=== PATIENT | female | born 1985 | race Caucasian/White ===

== ENCOUNTER 2018-04-23 09:46 | Emergency (ER) | payer BC ==
[~2018-04-23] VITALS: Ht 167.6 cm; Wt 74.8 kg
[2018-04-23] MEDS ORDERED: IV NORMAL SALINE 1,000ML 1,000 ML IV SCH (09:58)
[2018-04-23] MEDS ORDERED: MORPHINE SULFATE 4 MG/ML DISP.SYRIN. IV ONE (10:00)
[2018-04-23] MEDS ORDERED: ONDANSETRON PF 4 MG/2 ML VIAL. IV ONE (10:00)
[2018-04-23] MEDS ORDERED: 0.9 % SODIUM CHLORIDE 10 ML DISP.SYRIN. IV PRN (10:00)
[2018-04-23 10:13] LABS: BASO # 0.1 x10^3/uL (0.0-0.2); BASO % 1 % (0-3); EOS # 0.2 x10^3/uL (0.0-0.7); EOS % 1 % (0-3); HEMOGLOBIN 14.5 g/dL (12.0-15.5); LYMPH # 3.4 x10^3/uL (1.0-4.8); LYMPH % 22 % (24-48); MEAN CORPUSCULAR HEMOGLOBIN 33 pg (25-35); MEAN CORPUSCULAR HGB CONC 35 g/dL (31-37); MEAN CORPUSCULAR VOLUME 96 fL (79-100); MONO % 7 % (0-9); NEUT # 10.9 x10^3uL (1.8-7.7); NEUT % 70 % (31-73); PLATELET COUNT 300 x10^3/uL (140-400); RED BLOOD COUNT 4.38 x10^6/uL (3.50-5.40); RED CELL DISTRIBUTION WIDTH 13.9 % (11.5-14.5); WHITE BLOOD COUNT 15.6 x10^3/uL (4.0-11.0)
[2018-04-23 10:26] LABS: ALBUMIN 3.9 g/dL (3.4-5.0); ALBUMIN/GLOBULIN RATIO 1.1 (1.0-1.7); CALCIUM 8.9 mg/dL (8.5-10.1); CREATININE 0.7 mg/dL (0.6-1.0); GFR 98.3; POTASSIUM 4.1 mmol/L (3.5-5.1); TOTAL BILIRUBIN 0.6 mg/dL (0.2-1.0); TOTAL PROTEIN 7.3 g/dL (6.4-8.2)
--- NOTE | 2018-04-23 10:28 | PHYS DOC ---
Past History Past Medical History: No Pertinent History Smoking: Non-smoker Alcohol Use: Occasionally Drug Use: None Adult General Chief Complaint Chief Complaint: ABDOMINAL PAIN HPI HPI 32-year-old female patient presented to ER with complaining of abdominal pain. Patient states she had multiple abdominal pain since this morning that gradually became worse and had 7 episodes of vomiting and constant dry heaves. Patient rated his pain 10 over 10 and as a sharp pain with radiation to her back and upper abdomen without constipation, diarrhea, urinary symptom. Patient states she has history of ectopic and negative. Plan to removal with the same pain. Patient had LMP of 3 weeks ago. Review of Systems Review of Systems Constitutional: Denies fever or chills [] Eyes: Denies change in visual acuity, redness, or eye pain [] HENT: Denies nasal congestion or sore throat [] Respiratory: Denies cough or shortness of breath [] Cardiovascular: No additional information not addressed in HPI [] GI: Reports abdominal pain, nausea, vomiting, denies bloody stools or diarrhea [] : Denies dysuria or hematuria [] Musculoskeletal: Denies back pain or joint pain [] Integument: Denies rash or skin lesions [] Neurologic: Denies headache, focal weakness or sensory changes [] Endocrine: Denies polyuria or polydipsia [] All other systems were reviewed and found to be within normal limits, except as documented in this note. Current Medications Current Medications Current Medications Medications (Trade) Dose Ordered Sig/[facility] Start Time Stop Time Status Last Admin Dose Admin Morphine Sulfate (Morphine 4mg Syringe) 4 mg 1X ONCE 04/23/18 10:00 04/23/18 10:21 DC 04/23/18 10:00 4 MG Ondansetron HCl (Zofran) 4 mg 1X ONCE 04/23/18 10:00 04/23/18 10:21 DC 04/23/18 10:00 4 MG Sodium Chloride (Normal Saline Flush) 10 ml QSHIFT PRN 04/23/18 10:00 Allergies Allergies Allergies Coded Allergies Type Severity Reaction Last Updated Verified No Known Drug Allergies 04/23/18 No Physical Exam Physical Exam Constitutional: Well developed, well nourished, moderate distress, non-toxic appearance. [] HENT: Normocephalic, atraumatic, oropharynx dry, no oral exudates, nose normal. [] Eyes: PERRLA, EOMI, conjunctiva normal, no discharge. [] Neck: Normal range of motion, no tenderness, supple, no stridor. [] Cardiovascular: Bradycardic, no murmur [] Lungs & Thorax: Bilateral breath sounds clear to auscultation [] Abdomen: Bowel sounds normal, soft, lower abdominal guarding and tenderness, no masses, no pulsatile masses. [] Skin: Warm, dry, no erythema, no rash. [] Back: No tenderness, no CVA tenderness. [] Extremities: No tenderness, no cyanosis, no clubbing, ROM intact, no edema. [] Neurologic: Alert and oriented X 3, normal motor function, normal sensory function, no focal deficits noted. [] Psychologic: Affect anxious, judgement normal, mood normal. [] Current Patient Data Vital Signs Vital Signs Date Time Temp Pulse Resp B/P (MAP) Pulse Ox O2 Delivery O2 Flow Rate FiO2 04/23/18 10:14 98.3 94 18 98 Room Air Lab Results Laboratory Tests Test 04/23/18 09:59 White Blood Count 15.6 x10^3/uL (4.0-11.0) H Red Blood Count 4.38 x10^6/uL (3.50-5.40) Hemoglobin 14.5 g/dL (12.0-15.5) Hematocrit 42.0 % (36.0-47.0) Mean Corpuscular Volume 96 fL (79-100) Mean Corpuscular Hemoglobin 33 pg (25-35) Mean Corpuscular Hemoglobin Concent 35 g/dL (31-37) Red Cell Distribution Width 13.9 % (11.5-14.5) Platelet Count 300 x10^3/uL (140-400) Neutrophils (%) (Auto) 70 % (31-73) Lymphocytes (%) (Auto) 22 % (24-48) L Monocytes (%) (Auto) 7 % (0-9) Eosinophils (%) (Auto) 1 % (0-3) Basophils (%) (Auto) 1 % (0-3) Neutrophils # (Auto) 10.9 x10^3uL (1.8-7.7) H Lymphocytes # (Auto) 3.4 x10^3/uL (1.0-4.8) Monocytes # (Auto) 1.0 x10^3/uL (0.0-1.1) Eosinophils # (Auto) 0.2 x10^3/uL (0.0-0.7) Basophils # (Auto) 0.1 x10^3/uL (0.0-0.2) Platelet Estimate Pending Sodium Level 138 mmol/L (136-145) Potassium Level 4.1 mmol/L (3.5-5.1) Chloride Level 106 mmol/L (98-107) Carbon Dioxide Level 22 mmol/L (21-32) Anion Gap 10 (6-14) Blood Urea Nitrogen 17 mg/dL (7-20) Creatinine 0.7 mg/dL (0.6-1.0) Estimated GFR (Cockcroft-Gault) 98.3 BUN/Creatinine Ratio 24 (6-20) H Glucose Level 96 mg/dL (70-99) Calcium Level 8.9 mg/dL (8.5-10.1) Total Bilirubin 0.6 mg/dL (0.2-1.0) Aspartate Amino Transferase (AST) 18 U/L (15-37) Alanine Aminotransferase (ALT) 28 U/L (14-59) Alkaline Phosphatase 86 U/L (46-116) Total Protein 7.3 g/dL (6.4-8.2) Albumin 3.9 g/dL (3.4-5.0) Albumin/Globulin Ratio 1.1 (1.0-1.7) Lipase 84 U/L (73-393) EKG EKG [] Radiology/Procedures Radiology/Procedures [][place] [address] IMAGING REPORT Signed PATIENT: TOBIAS MEEHAN ACCOUNT: [id number] : 1985 LOCATION: ER AGE: 32 SEX: F EXAM STATUS: REG ER ORD. PHYSICIAN: VIVIAN NOONAN MD REASON: abdominal pain PROCEDURE: CT ABDOMEN PELVIS WO CONTRAST CT abdomen and pelvis without contrast 04/23/2018 CLINICAL INDICATION: Abdominal pain, mid section. COMPARISON: None. TECHNIQUE: Multiple CT images of the abdomen and pelvis were obtained without contrast. *One or more of the following individualized dose reduction techniques were utilized for this examination: 1. Automated exposure control. 2. Adjustment of the mA and/or kV according to patient size. 3. Use of iterative reconstruction technique. FINDINGS: Heart size is normal. Visualized lung bases are clear. Evaluation of the solid abdominal pelvic viscera, lymphadenopathy and vasculature is limited in the absence of intravenous contrast. Unenhanced contours of the liver, spleen, adrenal glands, pancreas and kidneys are grossly unremarkable. No hydronephrosis or nephrolithiasis. Small and large bowel loops are normal in caliber without obstruction. Mild dilatation of the appendix measuring 0.9 cm with intraluminal appendicolith and mild periappendiceal stranding. No pneumoperitoneum or drainable fluid collection. There is asymmetric density within the right omental fat without fluid or abnormal configuration of the associated vasculature no bowel obstruction. Trace dependent pelvic free fluid, likely reactive. Uterus and adnexa grossly unremarkable, though not well-visualized by CT. Mildly distended unopacified urinary bladder unremarkable. There are no destructive osseous lesions. IMPRESSION: 1. Acute uncomplicated appendicitis. 2. Asymmetric hazy attenuation the right omental fat, may be reactive to the appendiceal inflammation, as there is no evidence of omental fat torsion. These findings were discussed with Dr. Noonan by telephone at 11:10 AM 04/23/[address] Kam Webb. Electronically signed by: Kam Webb MD (04/23/2018 11:14 AM) [facility] [place] DICTATED AND SIGNED BY: KAM WEBB MD DATE: 04/23/18 1103 CC: VIVIAN NOONAN MD; PCP,NO ~ Course & Med Decision Making Course & Med Decision Making Pertinent Labs and Imaging studies reviewed. (See chart for details) Evaluation of patient in ER showed 32-year-old female patient with complaining of severe abdominal pain and nausea and vomiting. Patient was very anxious at arrival to ER with lower abdominal tenderness and guarding. Patient treated with IV fluid, Zofran, morphine and Toradol and felt better. Labs showed leukocytosis. test was negative. CT showed acute appendicitis. Dr. Pulliam call surgeon at [facility] informed at 1116 and recommended to admit patient to hospitalist and transfer patient to [facility]. Dr. Ayala accepted transfer to [facility]. Dragon Disclaimer Dragon Disclaimer This electronic medical record was generated, in whole or in part, using a voice recognition dictation system. Departure Departure: Impression: Primary Impression: Acute appendicitis Additional Impressions: Nausea and vomiting Bradycardia Disposition: XFER SHT-TRM HOSP ([facility] at 1117) Condition: IMPROVED Referrals: PCP,NO (PCP) Problem Qualifiers VIVIAN NOONAN MD Apr 23, 2018 10:28
[2018-04-23 10:37] LABS: PREG TEST PT QUAL NEGATIVE (NEG)
[2018-04-23] MEDS ORDERED: KETOROLAC 30 MG/ML VIAL. IV ONE (10:45)
[2018-04-23 11:11] LABS: % BANDS 2 % (0-9); % BASOS 0 % (0-3); % EOS 2 % (0-5); % LYMPHS 25 % (24-48); % MONOS 9 % (0-10); % SEGS 62 % (35-66); PLT ESTIMATE ADEQUATE (ADEQUATE); TOXIC GRANULATION PRESENT
[2018-04-23 11:16] VITALS: BP 123/86
--- NOTE | 2018-04-23 11:17 | RAD ---
CT abdomen and pelvis without contrast 04/23/2018 CLINICAL INDICATION: Abdominal pain, mid section. COMPARISON: None. TECHNIQUE: Multiple CT images of the abdomen and pelvis were obtained without contrast. *One or more of the following individualized dose reduction techniques were utilized for this examination: 1. Automated exposure control. 2. Adjustment of the mA and/or kV according to patient size. 3. Use of iterative reconstruction technique. FINDINGS: Heart size is normal. Visualized lung bases are clear. Evaluation of the solid abdominal pelvic viscera, lymphadenopathy and vasculature is limited in the absence of intravenous contrast. Unenhanced contours of the liver, spleen, adrenal glands, pancreas and kidneys are grossly unremarkable. No hydronephrosis or nephrolithiasis. Small and large bowel loops are normal in caliber without obstruction. Mild dilatation of the appendix measuring 0.9 cm with intraluminal appendicolith and mild periappendiceal stranding. No pneumoperitoneum or drainable fluid collection. There is asymmetric density within the right omental fat without fluid or abnormal configuration of the associated vasculature no bowel obstruction. Trace dependent pelvic free fluid, likely reactive. Uterus and adnexa grossly unremarkable, though not well-visualized by CT. Mildly distended unopacified urinary bladder unremarkable. There are no destructive osseous lesions. IMPRESSION: 1. Acute uncomplicated appendicitis. 2. Asymmetric hazy attenuation the right omental fat, may be reactive to the appendiceal inflammation, as there is no evidence of omental fat torsion. These findings were discussed with Dr. Madrigal by telephone at 11:10 AM 04/23/[address] Isidro Webb. Electronically signed by: Isidro Webb MD (04/23/2018 11:14 AM) [facility]
[2018-04-23] MEDS ORDERED: PIPERACILLIN/TAZOBACTAM 3.375 GM VIAL IV ONE (11:22)
[2018-04-23] MEDS ORDERED: IV NORMAL SALINE 50ML 50 ML ONE (11:23)
[2018-04-23 11:26] LABS: BILIRUBIN,URINE NEG (NEG); CLARITY,URINE HAZY; COLOR,URINE YELLOW; GLUCOSE,URINE NEG (NEG)
[2018-04-23 11:27] LABS: AMORPHOUS SEDIMENT,UR PRESENT /HPF; BACTERIA,URINE MOD /HPF (0-FEW); NITRITE,URINE NEG (NEG); RBC,URINE 0 /HPF (0-2); SQUAMOUS EPITHELIAL CELL,UR MOD /LPF; UROBILINOGEN,URINE 0.2 mg/dL (0.2 mg/dL); WBC,URINE RARE /HPF (0-4)
[2018-04-23] MEDS ORDERED: HYDROmorphone PF 1 MG/ML DISP.SYRIN IV ONE (11:30)
[2018-04-23] MEDS ORDERED: PIPERACILLIN/TAZOBACTAM 3.375 GM in IV NORMAL SALINE 50ML 50 ML IV ONE (11:30)
== END 2018-04-23 11:38 | disposition short-term general hospital (02) ==
LOC: ER 09:46
DX: K35.80 Unspecified acute appendicitis (principal); R00.1 Bradycardia, unspecified
CPT/HCPCS: 36415; 74176; 80053; 81001; 83690; 84703; 85007; 85025; 87086; 96361; 96374; 96375; 99285; J1170; J1885; J2270; J2405; J2543; J7030

== ENCOUNTER → 2018-05-01 | Outpatient (CLI) | payer BC ==
[2018-04-23 11:16] VITALS: BP 123/86
[2018-05-01 16:48] LABS: BASO # 0.1 x10^3/uL (0.0-0.2); BASO % 1 % (0-3); EOS # 0.5 x10^3/uL (0.0-0.7); EOS % 4 % (0-3); HEMATOCRIT 40.3 % (36.0-47.0); HEMOGLOBIN 13.7 g/dL (12.0-15.5); LYMPH # 3.9 x10^3/uL (1.0-4.8); LYMPH % 29 % (24-48); MEAN CORPUSCULAR HEMOGLOBIN 33 pg (25-35); MEAN CORPUSCULAR HGB CONC 34 g/dL (31-37); MEAN CORPUSCULAR VOLUME 97 fL (79-100); MONO # 0.8 x10^3/uL (0.0-1.1); MONO % 6 % (0-9); NEUT % 60 % (31-73); PLATELET COUNT 341 x10^3/uL (140-400); RED BLOOD COUNT 4.16 x10^6/uL (3.50-5.40); RED CELL DISTRIBUTION WIDTH 13.9 % (11.5-14.5); WHITE BLOOD COUNT 13.4 x10^3/uL (4.0-11.0)
== END | disposition home or self-care (01) ==
LOC: RAD 16:29
PROVIDERS: ATTEND Physician Assistant
DX: D72.829 Elevated white blood cell count, unspecified (principal)
CPT/HCPCS: 36415; 85025

== ENCOUNTER 2019-03-20 19:32 | Emergency (ER) | payer BC ==
[~2019-03-20] VITALS: Ht 154.9 cm; Wt 70.3 kg
[2019-03-20] MEDS ORDERED: IV NORMAL SALINE 1,000ML 1,000 ML IV SCH (19:59)
--- NOTE | 2019-03-20 20:09 | PHYS DOC ---
Past History Past Medical History: No Pertinent History Smoking: Non-smoker Alcohol Use: Occasionally Drug Use: None Adult General Chief Complaint Chief Complaint: ABDOMINAL PAIN HPI HPI Patient is a 33-year-old female who presents with complaint of left-sided flank and lower abdominal pain that started yesterday. Patient states that she has had some nausea and vomiting associated with the pain. She denies any urinary discomfort. She states that initially the pain is located in her left back and then has progressively come around the flank and radiates into her groin. She rates pain at a 7 out of 10. Patient states that nothing seems to improve the pain. She does indicate the pain is worsened with certain movements and with palpation over the painful area.[] Review of Systems Review of Systems Constitutional: Denies fever or chills [] Respiratory: Denies cough or shortness of breath [] Cardiovascular: No additional information not addressed in HPI [] GI: Complains of left-sided abdominal/flank pain with nausea and vomiting. Denies diarrhea [] : Denies dysuria or hematuria [] Musculoskeletal: Complains of left-sided back pain [] All other systems were reviewed and found to be within normal limits, except as documented in this note. Current Medications Current Medications Current Medications Medications (Trade) Dose Ordered Sig/[facility] Start Time Stop Time Status Last Admin Dose Admin Ketorolac Tromethamine (Toradol 30mg Vial) 30 mg 1X ONCE 03/20/19 20:00 03/20/19 20:01 UNV Ondansetron HCl (Zofran) 4 mg 1X ONCE 03/20/19 20:15 03/20/19 20:16 Sodium Chloride 1,000 ml @ 1,000 mls/hr Q1H 03/20/19 19:59 03/20/19 20:58 Allergies Allergies Allergies Coded Allergies Type Severity Reaction Last Updated Verified No Known Drug Allergies 04/23/18 No Physical Exam Physical Exam Constitutional: Well developed, well nourished, no acute distress, non-toxic appearance. [] HENT: Normocephalic, atraumatic, bilateral external ears normal, oropharynx moist, no oral exudates, nose normal. [] Eyes: PERRLA, EOMI, conjunctiva normal, no discharge. [] Neck: Normal range of motion, no tenderness, supple, no stridor. [] Cardiovascular: Regular rate and rhythm[] Lungs & Thorax: Bilateral breath sounds clear to auscultation [] Abdomen: Bowel sounds normal, soft, with left lower abdominal tenderness. [] Skin: Warm, dry, no erythema, no rash. [] Back: Mild left-sided CVA tenderness. [] Extremities: No tenderness, no cyanosis, no clubbing, ROM intact, no edema. [] Neurologic: Alert and oriented X 3, no focal deficits noted. [] Current Patient Data Lab Results Laboratory Tests Test 03/20/19 20:00 POC Urine HCG, Qualitative hcg negative (Negative) EKG EKG [] Radiology/Procedures Radiology/Procedures [] Impressions: PROCEDURE: CT ABD PELV W/ IV CONTRST ONLY CT Abdomen and Pelvis with contrast 03/20/2019 Clinical Indication: Left lower quadrant abdominal pain Comparison: CT abdomen and pelvis 04/23/2018 Technique: Multiple CT images of the abdomen and pelvis were obtained with contrast following intravenous administration of iodinated contrast material *One or more of the following individualized dose reduction techniques were utilized for this examination: 1. Automated exposure control. 2. Adjustment of the mA and/or kV according to patient size. 3. Use of iterative reconstruction technique. Findings: Heart size is normal. Visualized lung bases are clear. Liver, gallbladder, spleen, adrenal glands, pancreas and right kidney are unremarkable.d there is a 0.7 cm hypodensity in the inferior pole the left kidney which is too small to characterize. Abdominal aorta normal in caliber. Small and large bowel loops are normal in caliber without obstruction. Prior appendectomy. No abdominal free fluid or pneumoperitoneum. There is a linear hypodensity extending through the lower anterior uterine segment consistent with section scar. Right adnexa unremarkable. There is a left adnexal hypodensity measuring up to 2.2 cm series 2/image 56. Trace pelvic free fluid, likely physiologic. Mildly distended unopacified urinary bladder is unremarkable. No iliac or inguinal lymphadenopathy. There is mild chronic anterior wedging from T10 through to T12. IMPRESSION: 1. Left adnexal hypodensity measuring 2.2 cm, likely physiologic cyst. If there is focal pain, pelvic ultrasound with transvaginal is recommended for further evaluation. 2. Otherwise, no CT evidence of acute abdominal or pelvic process. 3. Solitary too small to characterize left renal hypodensity. Electronically signed by: Isidro Webb MD (03/20/2019 10:02 PM) [facility] [id number] PROCEDURE: TRANSVAGINAL Pelvic ultrasound dated 03/20/2019. No comparison available. Clinical data indication: Left lower quadrant pain. FINDINGS: Transvaginal imaging performed. Uterus measures 9.4 x 4.5 x 4.5 cm. No focal uterine mass. The medial complex is normal thickness for age measuring 10 mm. Right ovary measures 2.5 x 2.1 x 1.9 cm. Left ovary measures 2.8 x 2.8 x 3.0 cm. Normal color Doppler flow to both ovaries. There is a prominent left ovarian cyst that measures up to 2.5 cm in size. Small amount of free fluid. IMPRESSION: 1. No acute sonographic abnormality. 2. Small left ovarian cyst. 3. Trace amount of free pelvic fluid, nonspecific. Electronically signed by: Guillermo Jasso MD (03/20/2019 11:08 PM) [facility] DICTATED AND SIGNED BY: GUILLERMO JASSO MD DATE: 03/20/19 0064 Course & Med Decision Making Course & Med Decision Making Pertinent Labs and Imaging studies reviewed. (See chart for details) [] Dragon Disclaimer Dragon Disclaimer This electronic medical record was generated, in whole or in part, using a voice recognition dictation system. Departure Departure: Impression: Primary Impression: Ovarian cyst Disposition: 01 HOME, SELF-CARE Condition: STABLE Referrals: LEE ARROYO (PCP) Patient Instructions: Ovarian Cyst Scripts Ondansetron Hcl (ZOFRAN) 4 Mg Tablet 4 MG PO Q6HRS PRN for NAUSEA, #12 TAB Prov: DORENE SANTANA Jr. DO 03/20/19 Hydrocodone Bit/Acetaminophen (NORCO 5-325 TABLET) 1 Each Tablet 1 TAB PO PRN Q6HRS PRN for PAIN, #12 TAB 0 Refills Prov: DORENE SANTANA Jr. DO 03/20/19 Problem Qualifiers Primary Impression: Ovarian cyst Laterality: left Qualified Codes: N83.202 - Unspecified ovarian cyst, left side DORENE SANTANA Jr. DO March 20, 2019 20:09
[2019-03-20] MEDS ORDERED: KETOROLAC 30 MG/ML VIAL. IV ONE (20:15)
[2019-03-20] MEDS ORDERED: ONDANSETRON PF 4 MG/2 ML VIAL. IV ONE ×2 (20:15→23:00)
[2019-03-20 20:20] LABS: BASO # 0.2 x10^3/uL (0.0-0.2); BASO % 1 % (0-3); EOS # 0.2 x10^3/uL (0.0-0.7); EOS % 1 % (0-3); HEMATOCRIT 43.5 % (36.0-47.0); HEMOGLOBIN 14.8 g/dL (12.0-15.5); LYMPH # 3.4 x10^3/uL (1.0-4.8); LYMPH % 19 % (24-48); MEAN CORPUSCULAR HEMOGLOBIN 33 pg (25-35); MEAN CORPUSCULAR HGB CONC 34 g/dL (31-37); MEAN CORPUSCULAR VOLUME 96 fL (79-100); MONO # 1.2 x10^3/uL (0.0-1.1); MONO % 7 % (0-9); NEUT # 12.9 x10^3uL (1.8-7.7); NEUT % 72 % (31-73); PLATELET COUNT 297 x10^3/uL (140-400); RED BLOOD COUNT 4.55 x10^6/uL (3.50-5.40); RED CELL DISTRIBUTION WIDTH 13.9 % (11.5-14.5); WHITE BLOOD COUNT 17.9 x10^3/uL (4.0-11.0)
[2019-03-20 20:47] LABS: ALBUMIN 4.2 g/dL (3.4-5.0); ALBUMIN/GLOBULIN RATIO 1.2 (1.0-1.7); CALCIUM 9.3 mg/dL (8.5-10.1); CREATININE 0.7 mg/dL (0.6-1.0); GFR 97.6; POTASSIUM 3.9 mmol/L (3.5-5.1); TOTAL BILIRUBIN 0.4 mg/dL (0.2-1.0); TOTAL PROTEIN 7.6 g/dL (6.4-8.2)
[2019-03-20 20:56] LABS: BACTERIA,URINE 0 /HPF (0-FEW); BILIRUBIN,URINE NEG (NEG); CLARITY,URINE CLEAR; COLOR,URINE STRAW; GLUCOSE,URINE NEG (NEG); NITRITE,URINE NEG (NEG); RBC,URINE 0 /HPF (0-2); SQUAMOUS EPITHELIAL CELL,UR OCC /LPF; UROBILINOGEN,URINE 0.2 mg/dL (0.2 mg/dL); WBC,URINE OCC /HPF (0-4)
[2019-03-20] MEDS ORDERED: IOHEXOL 300 MG/ML 75 ML VIAL. IV ONE (21:45)
--- NOTE | 2019-03-20 22:05 | RAD ---
CT Abdomen and Pelvis with contrast 03/20/2019 Clinical Indication: Left lower quadrant abdominal pain Comparison: CT abdomen and pelvis 04/23/2018 Technique: Multiple CT images of the abdomen and pelvis were obtained with contrast following intravenous administration of iodinated contrast material *One or more of the following individualized dose reduction techniques were utilized for this examination: 1. Automated exposure control. 2. Adjustment of the mA and/or kV according to patient size. 3. Use of iterative reconstruction technique. Findings: Heart size is normal. Visualized lung bases are clear. Liver, gallbladder, spleen, adrenal glands, pancreas and right kidney are unremarkable.d there is a 0.7 cm hypodensity in the inferior pole the left kidney which is too small to characterize. Abdominal aorta normal in caliber. Small and large bowel loops are normal in caliber without obstruction. Prior appendectomy. No abdominal free fluid or pneumoperitoneum. There is a linear hypodensity extending through the lower anterior uterine segment consistent with section scar. Right adnexa unremarkable. There is a left adnexal hypodensity measuring up to 2.2 cm series 2/image 56. Trace pelvic free fluid, likely physiologic. Mildly distended unopacified urinary bladder is unremarkable. No iliac or inguinal lymphadenopathy. There is mild chronic anterior wedging from T10 through to T12. IMPRESSION: 1. Left adnexal hypodensity measuring 2.2 cm, likely physiologic cyst. If there is focal pain, pelvic ultrasound with transvaginal is recommended for further evaluation. 2. Otherwise, no CT evidence of acute abdominal or pelvic process. 3. Solitary too small to characterize left renal hypodensity. Electronically signed by: Isidro Webb MD (03/20/2019 10:02 PM) [facility]
[2019-03-20 23:06] LABS: % EOS 2 % (0-5); % LYMPHS 10 % (24-48); % MONOS 5 % (0-10); % SEGS 83 % (35-66)
[2019-03-20 23:08] LABS: ANISOCYTOSIS SLIGHT; PLT ESTIMATE INCREASED (ADEQUATE)
--- NOTE | 2019-03-20 23:11 | RAD ---
Pelvic ultrasound dated 03/20/2019. No comparison available. Clinical data indication: Left lower quadrant pain. FINDINGS: Transvaginal imaging performed. Uterus measures 9.4 x 4.5 x 4.5 cm. No focal uterine mass. The medial complex is normal thickness for age measuring 10 mm. Right ovary measures 2.5 x 2.1 x 1.9 cm. Left ovary measures 2.8 x 2.8 x 3.0 cm. Normal color Doppler flow to both ovaries. There is a prominent left ovarian cyst that measures up to 2.5 cm in size. Small amount of free fluid. IMPRESSION: 1. No acute sonographic abnormality. 2. Small left ovarian cyst. 3. Trace amount of free pelvic fluid, nonspecific. Electronically signed by: Guillermo Jasso MD (03/20/2019 11:08 PM) [facility]
[2019-03-20] MEDS ORDERED: ONDA4TAB7 PO (23:21)
[2019-03-20] MEDS ORDERED: HYDR-3165 PO (23:21)
[2019-03-20 23:30] VITALS: BP 105/60
== END 2019-03-20 23:35 | disposition home or self-care (01) ==
LOC: ER 19:32
DX: N83.202 Unspecified ovarian cyst, left side (principal); R11.2 Nausea with vomiting, unspecified
CPT/HCPCS: 36415; 74177; 76830; 80053; 81001; 81025; 83690; 85007; 85025; 96361; 96374; 96375; 96376; 99285; J1885; J2405; J3010; Q9967; J7030

== ENCOUNTER → 2019-03-21 | Outpatient (CLI) | payer BC ==
[2019-03-20 23:30] VITALS: BP 105/60
[~2019-03-21] MED LIST: HYDR-3165 PO; ONDA4TAB7 PO
--- NOTE | 2019-03-21 12:46 | RAD ---
Abdomen, 2 views, 03/21/2019: HISTORY: Abdominal pain, bloating There are surgical clips in the right midabdomen. The abdominal gas pattern is unremarkable. No free air is seen in the abdomen. There is no evidence of organomegaly. Lower pelvic calcifications are probably phleboliths. IMPRESSION: No acute abdominal abnormality is detected. Electronically signed by: Benito Mccrary MD (03/21/2019 12:43 PM) [facility]
== END | disposition home or self-care (01) ==
LOC: RAD 12:13
PROVIDERS: ATTEND Physician Assistant
DX: R14.0 Abdominal distension (gaseous) (principal); Z85.038 Personal history of other malignant neoplasm of large intestine
CPT/HCPCS: 74019; 74021

== ENCOUNTER 2020-05-02 13:44 | Emergency (ER) | payer BC ==
[~2020-05-02] VITALS: Ht 154.9 cm; Wt 75.9 kg
[2020-05-02] MEDS ORDERED: IV NORMAL SALINE 1,000ML 1,000 ML IV SCH (13:56)
--- NOTE | 2020-05-02 14:00 | PHYS DOC ---
Past History Past Medical History: No Pertinent History Past Surgical History: Appendectomy, , Other Past Surgical History Right salpingectomy Smoking: Non-smoker Alcohol Use: Rarely Drug Use: None General Adult EDM: Chief Complaint: ABDOMINAL PAIN HPI: HPI: Patient is a 34 year old female who presents for evaluation of left-sided abdominal and flank pain. She is been having progressive pain for 3 days. Patient had a positive home test. Patient is concerned that she may have an ectopic because she had one on the right side in 2013. That fallopian tube was removed at that time. Last menstrual period was March 31. Patient is a confirmed a 2 para 1. Patient denies any vaginal spotting or bleeding. Patient states she called her doctor and was told to come to the hospital for evaluation Review of Systems: Review of Systems: Constitutional: Denies fever or chills Eyes: Denies change in visual acuity HENT: Denies nasal congestion or sore throat Respiratory: Denies cough or shortness of breath Cardiovascular: Denies chest pain or edema GI: has abdominal pain, nausea, vomiting, bloody stools or diarrhea : Denies dysuria Musculoskeletal: right side back pain or joint pain Integument: Denies rash Neurologic: Denies headache, focal weakness or sensory changes Endocrine: Denies polyuria or polydipsia Lymphatic: Denies swollen glands Psychiatric: Denies depression or anxiety Heart Score: Risk Factors: Risk Factors: DM, Current or recent (<one month) smoker, HTN, HLP, family history of CAD, obesity. Risk Scores: Score 0 - 3: 2.5% MACE over next 6 weeks - Discharge Home Score 4 - 6: 20.3% MACE over next 6 weeks - Admit for Clinical Observation Score 7 - 10: 72.7% MACE over next 6 weeks - Early Invasive Strategies Allergies: Allergies: Allergies Coded Allergies Type Severity Reaction Last Updated Verified No Known Drug Allergies 03/20/19 No Physical Exam: PE: Constitutional: Well developed, well nourished, mild acute distress, non-toxic appearance. [] HENT: Normocephalic, atraumatic, bilateral external ears normal, oropharynx moist, no oral exudates, nose normal. [] Eyes: PERRL, EOMI, conjunctiva normal, no discharge. [] Neck: Normal range of motion, no tenderness, supple. [] Cardiovascular:Heart rate regular rhythm, no murmur [] Lungs & Thorax: Bilateral breath sounds clear to auscultation [] Abdomen: Bowel sounds normal, soft, mild left lower abd tenderness, no masses, no pulsatile masses. [] Skin: Warm, dry, no erythema, no rash. [] Back: mild left CVA tenderness. [] Extremities: No tenderness, no cyanosis, ROM intact, no edema. [] Neurologic: Alert and oriented, normal motor function, normal sensory function, no focal deficits noted. [] Psychologic: Affect normal, judgement normal, mood normal. 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 [] Current Patient Data: Labs: Laboratory Tests Test 05/02/20 14:13 White Blood Count 14.0 x10^3/uL Red Blood Count 4.23 x10^6/uL Hemoglobin 14.2 g/dL Hematocrit 41.2 % Mean Corpuscular Volume 98 fL Mean Corpuscular Hemoglobin 34 pg Mean Corpuscular Hemoglobin Concent 34 g/dL Red Cell Distribution Width 14.1 % Platelet Count 321 x10^3/uL Neutrophils (%) (Auto) 67 % Lymphocytes (%) (Auto) 24 % Monocytes (%) (Auto) 7 % Eosinophils (%) (Auto) 1 % Basophils (%) (Auto) 1 % Neutrophils # (Auto) 9.4 x10^3uL Lymphocytes # (Auto) 3.3 x10^3/uL Monocytes # (Auto) 1.0 x10^3/uL Eosinophils # (Auto) 0.2 x10^3/uL Basophils # (Auto) 0.1 x10^3/uL Urine Collection Type Void Urine Color Yellow Urine Clarity Clear Urine pH 5.5 Urine Specific [place] 1.025 Urine Protein Neg Urine Glucose (UA) Neg mg/dL Urine Ketones (Stick) Neg mg/dL Urine Blood Neg Urine Nitrite Neg Urine Bilirubin Neg Urine Urobilinogen Dipstick 0.2 mg/dL Urine Leukocyte Esterase Neg Urine RBC Rare /HPF Urine WBC 1-4 /HPF Urine Squamous Epithelial Cells Few /LPF Urine Amorphous Sediment Present /HPF Urine Bacteria 0 /HPF Urine Mucus Slight /LPF Maternal Serum HCG Beta Subunit 1642 mIU/mL Sodium Level 137 mmol/L Potassium Level 3.6 mmol/L Chloride Level 103 mmol/L Carbon Dioxide Level 22 mmol/L Anion Gap 12 Blood Urea Nitrogen 13 mg/dL Creatinine 0.8 mg/dL Estimated GFR (Cockcroft-Gault) 83.1 BUN/Creatinine Ratio 16 Glucose Level 96 mg/dL Calcium Level 9.1 mg/dL Total Bilirubin 0.4 mg/dL Aspartate Amino Transf (AST/SGOT) 15 U/L Alanine Aminotransferase (ALT/SGPT) 29 U/L Alkaline Phosphatase 73 U/L Total Protein 7.7 g/dL Albumin 4.1 g/dL Albumin/Globulin Ratio 1.1 Lipase 68 U/L Current Medications Medications (Trade) Dose Ordered Sig/Dwayne Route PRN Reason Start Time Stop Time Status Last Admin Dose Admin Sodium Chloride 1,000 ml @ 1,000 mls/hr Q1H IV 05/02/20 13:56 05/02/20 14:55 DC 05/02/20 14:16 EKG: EKG: [] Radiology/Procedures: Radiology/Procedures: [address] [address] IMAGING REPORT Signed PATIENT: TOBIAS MEEHAN NACCOUNT: [id number] : 1985 LOCATION: ER AGE: 34 SEX: F EXAM STATUS: REG ER ORD. PHYSICIAN: VENECIA DREW DO REASON: , left side pain, hx of ectopic PROCEDURE: OB <14 WKS Exam: Ultrasound OB less than 14 weeks Indication: , left-sided pain Technique: Real-time grayscale and color Doppler images of the pelvis were obtained by the department rn military. Comparisons: None FINDINGS: Uterus measures 9.2 x 5.6 x 5.0 cm. Within the endometrium there is a subcentimeter anechoic cystic structure. No pole or yolk sac identified. Right ovary measures 2.5 x 1.8 x 2.4 cm. Left ovary measures 2.7 x 3.3 x 1.6 cm. Vascular flow identified within the ovaries bilaterally. There is a small amount of free fluid in the pelvis. IMPRESSION: 1. Possible small gestational sac in the endometrium without pole or yolk sac identified. Intrauterine is not confirmed. Differential considerations include early IUP versus failed IUP. Possibility of nonvisualized ectopic with pseudogestational sac is also considered, however rare. Recommend correlation with serial beta hCG measurements and short-term follow-up ultrasound. 2. Small amount of free fluid in the pelvis, nonspecific. Electronically signed by: Demario Vazquez MD (05/02/2020 5:47 PM) [id number] DICTATED AND SIGNED BY: DEMARIO VAZQUEZ MD DATE: 05/02/20 8981 CC: LEE ARROYO; VENECIA DREW DO ~[] Course & Med Decision Making: Course & Med Decision Making Pertinent Labs and Imaging studies reviewed. (See chart for details) [] Dragon Disclaimer: Dragon Disclaimer: This electronic medical record was generated, in whole or in part, using a voice recognition dictation system. 1515 stable, beta quant confirms . Ultrasound now contacted to come in for evaluation. We will make sure patient does not have an ectopic . Furthermore we will do a pelvic exam here shortly 1805 operations supervisor chemical cleaning for [employer] call to discuss case. Patient tearful as I could not definitively determine the viability of this nor could he definitively determine intrauterine versus a nonvisualized ectopic. Patient is oh negative blood. Beta quant is approximately [address] Rojas is operations supervisor chemical cleaning for [facility] Director was paged at this time to discuss case. She called right back and we discussed the case at length. Patient does not yet need RhoGam.. Patient to follow-up with OB in 3 days to get repeat sonogram and repeat beta quant blood work. Patient is to call for appointment Departure Departure: Impression: Primary Impression: Pelvic pain affecting Qualified Codes: O26.891 - Other specified related conditions, first trimester; R10.2 - Pelvic and perineal pain Additional Impressions: Left lateral abdominal pain Early stage of Disposition: HOME/RESIDENCE PRIOR TO ADM Condition: STABLE Referrals: LEE ARROYO (PCP) Patient Instructions: Abdominal Pain During , Pelvic Pain, Female, [id number] Additional Instructions: Pelvic rest, no intercourse until cleared by your [employer]. You need to see your doctor and get a repeat sonogram in several days as well as a repeat hormone level blood test (Beta Quant) Justification of Admission: Justification of Admission: Justification of Admission Dx: N/A VENECIA DREW DO May 02, 2020 14:00
[2020-05-02 14:27] LABS: BASO # 0.1 x10^3/uL (0.0-0.2); BASO % 1 % (0-3); EOS # 0.2 x10^3/uL (0.0-0.7); EOS % 1 % (0-3); HEMATOCRIT 41.2 % (36.0-47.0); HEMOGLOBIN 14.2 g/dL (12.0-15.5); LYMPH # 3.3 x10^3/uL (1.0-4.8); LYMPH % 24 % (24-48); MEAN CORPUSCULAR HEMOGLOBIN 34 pg (25-35); MEAN CORPUSCULAR HGB CONC 34 g/dL (31-37); MEAN CORPUSCULAR VOLUME 98 fL (79-100); MONO % 7 % (0-9); NEUT # 9.4 x10^3uL (1.8-7.7); NEUT % 67 % (31-73); PLATELET COUNT 321 x10^3/uL (140-400); RED BLOOD COUNT 4.23 x10^6/uL (3.50-5.40); RED CELL DISTRIBUTION WIDTH 14.1 % (11.5-14.5)
[2020-05-02 14:40] LABS: CALCIUM 9.1 mg/dL (8.5-10.1); CREATININE 0.8 mg/dL (0.6-1.0); GFR 83.1; POTASSIUM 3.6 mmol/L (3.5-5.1)
[2020-05-02 14:46] LABS: ALBUMIN 4.1 g/dL (3.4-5.0); ALBUMIN/GLOBULIN RATIO 1.1 (1.0-1.7); TOTAL BILIRUBIN 0.4 mg/dL (0.2-1.0); TOTAL PROTEIN 7.7 g/dL (6.4-8.2)
[2020-05-02 14:48] LABS: BILIRUBIN,URINE NEG (NEG); CLARITY,URINE CLEAR; COLOR,URINE YELLOW; GLUCOSE,URINE NEG (NEG)
[2020-05-02 14:49] LABS: AMORPHOUS SEDIMENT,UR PRESENT /HPF; BACTERIA,URINE 0 /HPF (0-FEW); NITRITE,URINE NEG (NEG); RBC,URINE RARE /HPF (0-2); SQUAMOUS EPITHELIAL CELL,UR FEW /LPF; UROBILINOGEN,URINE 0.2 mg/dL (0.2 mg/dL)
--- NOTE | 2020-05-02 17:49 | RAD ---
Exam: Ultrasound OB less than 14 weeks Indication: , left-sided pain Technique: Real-time grayscale and color Doppler images of the pelvis were obtained by the department shoe cementer. Comparisons: None FINDINGS: Uterus measures 9.2 x 5.6 x 5.0 cm. Within the endometrium there is a subcentimeter anechoic cystic structure. No pole or yolk sac identified. Right ovary measures 2.5 x 1.8 x 2.4 cm. Left ovary measures 2.7 x 3.3 x 1.6 cm. Vascular flow identified within the ovaries bilaterally. There is a small amount of free fluid in the pelvis. IMPRESSION: 1. Possible small gestational sac in the endometrium without pole or yolk sac identified. Intrauterine is not confirmed. Differential considerations include early IUP versus failed IUP. Possibility of nonvisualized ectopic with pseudogestational sac is also considered, however rare. Recommend correlation with serial beta hCG measurements and short-term follow-up ultrasound. 2. Small amount of free fluid in the pelvis, nonspecific. Electronically signed by: Demario Perla MD (05/02/2020 5:47 PM) [id number]
[2020-05-02 18:37] VITALS: BP 111/71
[2020-05-05 19:08] LABS: CHLAMYDIA PROBE Negative (Negative)
== END 2020-05-02 18:37 | disposition home or self-care (01) ==
LOC: ER 13:44
DX: O26.891 Other specified pregnancy related conditions, first trimester (principal); R10.2 Pelvic and perineal pain; O21.9 Vomiting of pregnancy, unspecified; Z3A.01 Less than 8 weeks gestation of pregnancy
CPT/HCPCS: 36415; 76801; 80053; 81001; 83690; 84702; 85025; 86850; 86900; 86901; 87491; 87591; 96360; 99285; J7030; Q0111

== ENCOUNTER 2020-06-15 06:16 | Emergency (ER) | payer BC ==
[~2020-06-15] VITALS: Ht 154.9 cm; Wt 75.9 kg
[2020-06-15 06:22] VITALS: BP 130/80
[2020-06-15] MEDS ORDERED: IV NORMAL SALINE 1,000ML 1,000 ML IV SCH (06:30)
--- NOTE | 2020-06-15 06:31 | PHYS DOC ---
Past History Past Medical History: No Pertinent History Past Surgical History: Appendectomy, , Oophorectomy, Tubal ligation, Other Additional Past Surgical Histo: knee surgery; right foot surgery Smoking: Non-smoker Alcohol Use: Rarely Drug Use: None General Adult EDM: Chief Complaint: VAGINAL BLEEDING HPI: HPI: Patient is a 34 year old female who presents for evaluation of moderate pain, cramping and vaginal bleeding. Pt appears to be having a miscarriage this morning and passed a sac shortly after arrival. Pt states the bleeding and cramping have been going on since about 6pm last night. Pt has been taking misoprostol prescribed from her Riddler Operator Dr. Sage. Pt was in moderate discomfort on arrival. Pt is Ab1 (prior ruptured ectopic ). Pt is here with her as well. Pt was about 8 weeks when she was diagnosed with demise. Pt is O negative and received rhogam about 2 weeks ago. Review of Systems: Review of Systems: Constitutional: Denies fever or chills Eyes: Denies change in visual acuity HENT: Denies nasal congestion or sore throat Respiratory: Denies cough or shortness of breath Cardiovascular: Denies chest pain or edema GI: Moderate lower abdominal pain, no nausea, vomiting, bloody stools or diarrhea : Denies dysuria Musculoskeletal: Has low back pain or joint pain Integument: Denies rash Neurologic: Denies headache, focal weakness or sensory changes Endocrine: Denies polyuria or polydipsia Lymphatic: Denies swollen glands Psychiatric: has anxiety Heart Score: Risk Factors: Risk Factors: DM, Current or recent (<one month) smoker, HTN, HLP, family history of CAD, obesity. Risk Scores: Score 0 - 3: 2.5% MACE over next 6 weeks - Discharge Home Score 4 - 6: 20.3% MACE over next 6 weeks - Admit for Clinical Observation Score 7 - 10: 72.7% MACE over next 6 weeks - Early Invasive Strategies Current Medications: Current Meds: Current Medications Medications (Trade) Dose Ordered Sig/Dwayne Start Time Stop Time Status Last Admin Dose Admin Fentanyl Citrate (Fentanyl 2ml Vial) 50 mcg PRN Q15MIN PRN 06/15/20 06:30 06/16/20 06:29 UNV Sodium Chloride 1,000 ml @ 1,000 mls/hr Q1H 06/15/20 06:17 06/15/20 07:16 UNV Allergies: Allergies: Allergies Coded Allergies Type Severity Reaction Last Updated Verified No Known Drug Allergies 05/02/20 No Physical Exam: PE: Constitutional: Well developed, well nourished, moderate acute distress, non- toxic appearance. [] HENT: Normocephalic, atraumatic, bilateral external ears normal, oropharynx moist, no oral exudates, nose normal. [] Eyes: PERRL, EOMI, conjunctiva normal, no discharge. [] Neck: Normal range of motion, no tenderness, supple, no stridor. [] Cardiovascular:Heart rate regular rhythm, no murmur [] Lungs & Thorax: Bilateral breath sounds clear to auscultation [] Abdomen: Bowel sounds normal, soft, lower abd tenderness. [] Skin: Warm, dry, no erythema, no rash. [] Back: No tenderness. [] Extremities: No tenderness, no cyanosis, ROM intact, no edema. [] Neurologic: Alert and oriented X 3, normal motor function, normal sensory function, no focal deficits noted. [] Psychologic: Affect normal, judgement normal, mood anxious [] : female nurse chaparone present, os slightly open, small amount of tissue present outside the cervical os Current Patient Data: Labs: Laboratory Tests Test 06/15/20 06:30 White Blood Count 15.4 x10^3/uL Red Blood Count 3.76 x10^6/uL Hemoglobin 12.5 g/dL Hematocrit 36.7 % Mean Corpuscular Volume 98 fL Mean Corpuscular Hemoglobin 33 pg Mean Corpuscular Hemoglobin Concent 34 g/dL Red Cell Distribution Width 13.5 % Platelet Count 308 x10^3/uL Neutrophils (%) (Auto) 83 % Lymphocytes (%) (Auto) 12 % Monocytes (%) (Auto) 4 % Eosinophils (%) (Auto) 1 % Basophils (%) (Auto) 0 % Neutrophils # (Auto) 12.8 x10^3uL Lymphocytes # (Auto) 1.8 x10^3/uL Monocytes # (Auto) 0.6 x10^3/uL Eosinophils # (Auto) 0.2 x10^3/uL Basophils # (Auto) 0.1 x10^3/uL Platelet Estimate Pending Sodium Level 137 mmol/L Potassium Level 3.7 mmol/L Chloride Level 104 mmol/L Carbon Dioxide Level 18 mmol/L Anion Gap 15 Blood Urea Nitrogen 17 mg/dL Creatinine 0.9 mg/dL Estimated GFR (Cockcroft-Gault) 72.6 BUN/Creatinine Ratio 19 Glucose Level 123 mg/dL Calcium Level 8.4 mg/dL Total Bilirubin 0.2 mg/dL Aspartate Amino Transf (AST/SGOT) 12 U/L Alanine Aminotransferase (ALT/SGPT) 20 U/L Alkaline Phosphatase 63 U/L Total Protein 6.8 g/dL Albumin 3.4 g/dL Albumin/Globulin Ratio 1.0 Current Medications Medications (Trade) Dose Ordered Sig/Dwayne Route PRN Reason Start Time Stop Time Status Last Admin Dose Admin Fentanyl Citrate (Fentanyl 2ml Vial) 50 mcg PRN Q15MIN PRN IV PAIN GREATER THAN 3/10 06/15/20 06:30 06/16/20 06:29 06/15/20 06:35 Sodium Chloride 1,000 ml @ 1,000 mls/hr Q1H IV 06/15/20 06:30 06/15/20 07:29 DC 06/15/20 06:35 EKG: EKG: [] Radiology/Procedures: Radiology/Procedures: [place] [address] IMAGING REPORT Signed PATIENT: TBOIAS MEEHAN NACCOUNT: [id number] : 1985 LOCATION: ER AGE: 34 SEX: F EXAM STATUS: REG ER ORD. PHYSICIAN: VENECIA DREW DO REASON: miscarriage, pain PROCEDURE: US PELVIS Pelvic ultrasound: Reason for examination: status post miscarriage with pain. Transabdominal ultrasound examination of the pelvis was performed. Uterus measures 12.6 x 6.3 x 6.3 cm in greatest dimension. Focal uterine mass is not seen. Endometrium is not thickened at 7.2 mm. No abnormal fluid or retained products of conception are apparent within the endometrium. Right ovary measures 2.6 x 1.6 x 1.5 cm in greatest dimension and shows normal blood flow. No right adnexal masses seen. Left ovary measures 2.8 x 1.6 x 1.7 cm in greatest dimension with good vascular flow. No left adnexal masses seen. No abnormality seen at the bladder. There is no free fluid seen in the pelvis. IMPRESSION: No focal abnormality seen in the pelvis. Electronically signed by: Dane Aguilar MD (06/15/2020 8:07 AM) [facility] DICTATED AND SIGNED BY: DANE AGUILAR MD DATE: 06/15/20 0807 CC: LEE ARROYO; VENECIA DREW DO ~ [] Course & Med Decision Making: Course & Med Decision Making Pertinent Labs and Imaging studies reviewed. (See chart for details) [] Dragon Disclaimer: Dragon Disclaimer: This electronic medical record was generated, in whole or in part, using a voice recognition dictation system. 0824 Stable, special weapons unit officer for her Riddler Operator Dr. Aranda called back to discuss case. Pt had already received rhogam less than 2 weeks ago. Sonogram did now show any obvious retained production. SBP briefly dipped to 80/palp but then recovered to 107 systolic. Pt stable for discharge and close follow up with her Riddler Operator in the office. Departure Departure: Impression: Primary Impression: Complete miscarriage Disposition: 01 HOME/RESIDENCE PRIOR TO ADM Condition: STABLE Referrals: LEE ARROYO (PCP) Patient Instructions: Miscarriage Additional Instructions: call and see Dr. Sage in the office right away. You can call tomorrow for appt. Their number is: [phone]. Return if you are bleeding more than 2 pads per hour. Scripts Ibuprofen (IBUPROFEN) 800 Mg Tablet 1 TAB PO TID for abd cramping/pain, #30 TAB Prov: VENECIA DREW DO 06/15/20 Justification of Admission: Justification of Admission: Justification of Admission Dx: N/A VENECIA DREW DO Jun 15, 2020 06:31
[2020-06-15 07:12] LABS: BASO # 0.1 x10^3/uL (0.0-0.2); BASO % 0 % (0-3); EOS # 0.2 x10^3/uL (0.0-0.7); EOS % 1 % (0-3); HEMATOCRIT 36.7 % (36.0-47.0); HEMOGLOBIN 12.5 g/dL (12.0-15.5); LYMPH # 1.8 x10^3/uL (1.0-4.8); LYMPH % 12 % (24-48); MEAN CORPUSCULAR HEMOGLOBIN 33 pg (25-35); MEAN CORPUSCULAR HGB CONC 34 g/dL (31-37); MEAN CORPUSCULAR VOLUME 98 fL (79-100); MONO # 0.6 x10^3/uL (0.0-1.1); MONO % 4 % (0-9); NEUT # 12.8 x10^3uL (1.8-7.7); NEUT % 83 % (31-73); PLATELET COUNT 308 x10^3/uL (140-400); RED BLOOD COUNT 3.76 x10^6/uL (3.50-5.40); RED CELL DISTRIBUTION WIDTH 13.5 % (11.5-14.5); WHITE BLOOD COUNT 15.4 x10^3/uL (4.0-11.0)
[2020-06-15 07:20] LABS: CALCIUM 8.4 mg/dL (8.5-10.1); CREATININE 0.9 mg/dL (0.6-1.0); GFR 72.6; POTASSIUM 3.7 mmol/L (3.5-5.1)
[2020-06-15 07:26] LABS: ALBUMIN 3.4 g/dL (3.4-5.0); TOTAL BILIRUBIN 0.2 mg/dL (0.2-1.0); TOTAL PROTEIN 6.8 g/dL (6.4-8.2)
[2020-06-15] MEDS ORDERED: IV NORMAL SALINE 1,000ML 1,000 ML IV ONE ×2 (08:00)
--- NOTE | 2020-06-15 08:09 | RAD ---
Pelvic ultrasound: Reason for examination: status post miscarriage with pain. Transabdominal ultrasound examination of the pelvis was performed. Uterus measures 12.6 x 6.3 x 6.3 cm in greatest dimension. Focal uterine mass is not seen. Endometrium is not thickened at 7.2 mm. No abnormal fluid or retained products of conception are apparent within the endometrium. Right ovary measures 2.6 x 1.6 x 1.5 cm in greatest dimension and shows normal blood flow. No right adnexal masses seen. Left ovary measures 2.8 x 1.6 x 1.7 cm in greatest dimension with good vascular flow. No left adnexal masses seen. No abnormality seen at the bladder. There is no free fluid seen in the pelvis. IMPRESSION: No focal abnormality seen in the pelvis. Electronically signed by: Michela Stout MD (06/15/2020 8:07 AM) EMILIO
[2020-06-15] MEDS ORDERED: IBUP800T19 PO (08:28)
[2020-06-15] MEDS ORDERED: KETOROLAC 30 MG/ML VIAL. IVP ONE (08:30)
[2020-06-15 11:29] LABS: % BANDS 4 % (0-9); % BASOS 1 % (0-3); % LYMPHS 7 % (24-48); % MONOS 6 % (0-10); % SEGS 82 % (35-66)
[2020-06-15 11:43] LABS: PLT ESTIMATE ADEQUATE (ADEQUATE)
[2020-06-15 11:44] LABS: BURR CELLS FEW
== END 2020-06-15 08:30 | disposition home or self-care (01) ==
LOC: ER 06:16
DX: O03.9 Complete or unspecified spontaneous abortion without complication (principal); Z90.89 Acquired absence of other organs; Z98.890 Other specified postprocedural states; Z98.51 Tubal ligation status; Z90.722 Acquired absence of ovaries, bilateral
CPT/HCPCS: 36415; 76856; 80053; 84702; 85007; 85025; 86850; 86900; 86901; 96361; 96374; 96375; 99284; J1885; J3010; J7030

== ENCOUNTER → 2021-01-29 | Outpatient (CLI) | payer BC ==
[~2021-01-29] MED LIST changes: +IBUP800T19 PO
--- NOTE | 2021-01-29 17:00 | RAD ---
INDICATION: Reason: DIZZY / Spl. Instructions: / History: FINDINGS: 2 view of chest obtained. Cardiac silhouette is unremarkable. No focal airspace consolidation or pulmonary edema. Mild degenerative changes the spine with osteophyte formation. IMPRESSION: * No focal airspace consolidation. Electronically signed by: Pillo Lara MD (01/29/2021 4:57 PM) [id number]
== END ==
LOC: RAD 11:52
PROVIDERS: ATTEND Physician Assistant
DX: R07.9 Chest pain, unspecified (principal); R42 Dizziness and giddiness
CPT/HCPCS: 71046

== ENCOUNTER 2021-01-30 14:18 | Emergency (ER) | payer BC ==
[~2021-01-30] VITALS: Ht 154.9 cm; Wt 80.2 kg
[2021-01-30] MEDS ORDERED: ASPIRIN CHEWABLE 81 MG TABLET. PO ONE (14:30)
--- NOTE | 2021-01-30 14:41 | PHYS DOC ---
Past History Past Medical History: No Pertinent History Past Surgical History: Appendectomy, , Oophorectomy, Other Additional Past Surgical Histo: knee surgery; right foot surgery, TUBAL REPAIR Smoking: Non-smoker Alcohol Use: Rarely Drug Use: None General Adult EDM: Chief Complaint: CHEST PAIN HPI: HPI: Patient is a 35-year-old female presents with left-sided chest pain since Tuesday. Patient states that the pain has been a constant dull pain that radiates through to her back and down her left arm. Patient states "I feel like my heart is just been racing". Patient reports seeing her PCP yesterday who did a chest x-ray and lab work. Her PCP called her today and told her that her troponin was elevated and that she needed just to be seen in the emergency room. Patient denies taking anything for the pain. Patient is normal sinus rhythm, 98 bpm. Patient is also reporting some dizziness. "I have just been going to work and coming straight home and laying down because I been so tired". Denies taking anything for the pain prior to arrival. Patient denies recent illness. Patient states that she had Covid in July. Denies family history of sudden cardiac arrest. Patient denies medical history. Patient does have a history of vaping. Review of Systems: Review of Systems: Constitutional: Denies fever or chills Eyes: Denies change in visual acuity HENT: Denies nasal congestion or sore throat Respiratory: Denies cough, reports shortness of breath Cardiovascular: Reports chest pain, dizziness GI: Denies abdominal pain, nausea, vomiting, bloody stools or diarrhea : Denies dysuria Musculoskeletal: Reports chest pain that radiates through to her back or joint pain Integument: Denies rash Neurologic: Denies headache, focal weakness or sensory changes Endocrine: Denies polyuria or polydipsia Lymphatic: Denies swollen glands Psychiatric: Denies depression or anxiety Current Medications: Current Meds: Current Medications Medications (Trade) Dose Ordered Sig/Dwayne Start Time Stop Time Status Last Admin Dose Admin Aspirin (Aspirin Chewable) 324 mg 1X ONCE 01/30/21 14:30 01/30/21 14:31 DC Allergies: Allergies: Allergies Coded Allergies Type Severity Reaction Last Updated Verified No Known Drug Allergies 05/02/20 No Physical Exam: PE: Constitutional: Well developed, well nourished, no acute distress, non-toxic appearance. [] HENT: Normocephalic, atraumatic, bilateral external ears normal, oropharynx moist, no oral exudates, nose normal. [] Eyes: PERRLA, EOMI, conjunctiva normal, no discharge. [] Neck: Normal range of motion, no tenderness, supple, no stridor. [] Cardiovascular:Heart rate regular rhythm, 98 bpm Lungs & Thorax: Bilateral breath sounds clear to auscultation [] Abdomen: Bowel sounds normal, soft, no tenderness, no masses, no pulsatile masses. [] Skin: Warm, dry, no erythema, no rash. [] Back: No tenderness, no CVA tenderness. [] Extremities: No tenderness, no cyanosis, no clubbing, ROM intact, no edema. [] Neurologic: Alert and oriented X 3, normal motor function, normal sensory function, no focal deficits noted. [] Psychologic: Affect normal, judgement normal, mood normal. [] EKG: EKG: Sinus rhythm, normal ECG. Heart rate 98 bpm. Intervals normal. Bascom normal. [] Radiology/Procedures: Radiology/Procedures: []XR CHEST 1V History: Reason: CHEST PAIN / Spl. Instructions: / History: Comparison: January 29, 2021 Findings: Low lung volumes. No consolidation or pleural effusion. Normal heart size. No pneumothorax. Impression: 1. No acute cardiopulmonary process. Electronically signed by: Saman Morris DO (01/30/2021 2:53 PM) [id number] EXAM: Head CT without contrast. HISTORY: Dizziness. TECHNIQUE: Computed tomographic images of the head were obtained without contrast. *One or more of the following individualized dose reduction techniques were utilized for this examination: 1. Automated exposure control. 2. Adjustment of the mA and/or kV according to patient size. 3. Use of iterative reconstruction technique. COMPARISON: None. FINDINGS: There is no acute or subacute extra-axial or intraparenchymal hemorrhage. There is no mass effect or midline shift. There is no hydrocephalus. The ferreira-white matter differentiation pattern is intact. There is a small lucent lesion within the right calvarium at the vertex, the a ppearance of which favors a benign hemangioma. The orbits and visualized paranasal sinuses mastoid air cells are unremarkable. IMPRESSION: No acute intracranial findings. Electronically signed by: Vale Sorto MD (01/30/2021 5:08 PM) [id number] Heart Score: C/O Chest Pain: Yes HEART Score for Chest Pain: HEART Score for Chest Pain Response (Comments) Value History Moderately Suspicious 1 ECG Normal 0 Age < 45 0 Risk Factors 1 or 2 Risk Factors 1 Troponin < Normal Limit 0 Total 2 Risk Factors: Risk Factors: DM, Current or recent (<one month) smoker, HTN, HLP, family history of CAD, obesity. Risk Scores: Score 0 - 3: 2.5% MACE over next 6 weeks - Discharge Home Score 4 - 6: 20.3% MACE over next 6 weeks - Admit for Clinical Observation Score 7 - 10: 72.7% MACE over next 6 weeks - Early Invasive Strategies Course & Med Decision Making: Course & Med Decision Making Pertinent Labs and Imaging studies reviewed. (See chart for details) [] Patient was sent in from her PCP after being seen in his office yesterday for chest pain, dizziness, shortness of breath. PCP called and informed her today she needed to be seen in the emergency room because her troponin was elevated. Patient still reporting chest tightness, left arm pain, dizziness that has been constant since Tuesday. Patient denies taking anything for pain prior to arriv al. Patient given 324 aspirin. Chest x-ray, CBC, CMP, D-dimer ordered. Patient does report she had Covid back in July. Denies recent illness or cough. D-dimer 0.37. Chest x-rays negative for any acute abnormalities. Labs are unremarkable. EKG shows normal sinus rhythm. Heart rate 98 bpm. Heart score of 2. Troponin is negative. CT of head without contrast is ordered due to patient complaining of dizziness. CT of head was negative for any acute intracranial findings. Spoke with Dr. Patricia for consultation. Dr. Patricia recommended patient to follow-up next week in his office for further evaluation. I gave the patient Dr. Patricia's phone number and explained to her to follow-up next week. Explained to patient that she needs to return to the emergency room if she has worsening symptoms or concerns. Patient is hemodynamically stable and able to ambulate on her own at the emergency room. Patient is okay with this plan and will follow up with cardiology. Louis Disclaimer: Louis Disclaimer: This electronic medical record was generated, in whole or in part, using a voice recognition dictation system. Departure Departure: Impression: Primary Impression: Chest pain Qualified Codes: R07.9 - Chest pain, unspecified Disposition: 01 DC HOME SELF CARE/HOMELESS Condition: STABLE Referrals: LEE ARROYO (PCP) Patient Instructions: Chest Pain (Nonspecific), [id number] Additional Instructions: You are seen in the emergency room for chest pain and an elevated troponin. Your chest x-ray was negative for any acute abnormalities. Your troponin in the emergency room was not elevated. All of your lab work was unremarkable. I consulted cardiology who would like you to follow-up next week for further management. I have including Dr. Patricia's office number so you can follow-up. If you have worsening symptoms or concerns please return to the emergency room for evaluation. [address], [place] [address] [facility] [address] EMERGENCY DEPARTMENT GENERAL DISCHARGE INSTRUCTIONS Thank you for coming to [facility] (ED) today and trusting us with you care. We trust that you had a positivie experience in our Emergency Department. If you wish to speak to the department management, you may call the director at [phone]. YOUR FOLLOW UP INSTRUCTIONS ARE FOLLOWS: 1. Do you have a private Doctor? If you do not have a private doctor, please ask for a resource list of physicians or clinics that may be able to assist you with follow up care. 2. The Emergency Physician has interpreted your x-rays. The X-Ray specialist will also review them. If there is a change in the findings, you will be notified in 48 h ours when at all possible. 3. A lab test or culture has been done, your results will be reviewed and you will be notified if you need a change in treatment. ADDITIONAL INSTRUCTIONS AND INFORMATION: 1. Your care today has been supervised by a physician who is specially trained in emergency care. Many problems require more than one evaluation for a complete diagnosis and treatment. We recommend that you schedule your follow up appointment as recommended to ensure complete treatment of you illness or injury. If you are unable to obtain follow up care and continue to have a problem, or if your condition worsens, we recommend that you return to the ED. 2. We are not able to safely determine your condition over the phone nor are we able to give sound medical advice over the phone. For these safety reasons, if you call for medical advice we will ask you to come to the ED for further evaluation. 3. If you have any questions regarding these discharge instructions please call the ED at [phone]. SAFETY INFORMATION: In the interest of safety, wellness, and injury prevention; we encourage you to wear your sealbelt, if you smoke; quite smoking, and we encourage family to use a protective helmet for bicycling and other sporting events that present an increased risk for head injury. IF YOUR SYMPTOMS WORSEN OR NEW SYMPTOMS DEVELOP, OR YOU HAVE CONCERNS ABOUT YOUR CONDITION; OR IF YOUR CONDITION WORSENS WHILE YOU ARE WAITING FOR YOUR FOLLOW UP APPOINTMENT; EITHER CONTACT YOUR PRIMARY CARE DOCTOR, THE PHYSICIAN WHOSE NAME AND NUMBER YOU WERE GIVEN, OR RETURN TO THE ED IMMEDIATELY. VANNESA ALBERT APRN Jan 30, 2021 14:41
--- NOTE | 2021-01-30 14:49 | EKG ---
[address] [address] Test Date: 2021-01-30 Test Time: 14:24:12 Pat Name: TOBIAS PAIZ Department: Room: Gender: F Director Of Planning: : 1985 Requested By: VANNESA ALBERT Order Number: [id number] Reading MD: Measurements Intervals Orgas Rate: 98 P: 3 CT: 174 QRS: 31 QRSD: 98 T: 9 QT: 348 QTc: 446 Interpretive Statements SINUS RHYTHM NORMAL ECG RI6.02 No previous ECG available for comparison
--- NOTE | 2021-01-30 14:56 | RAD ---
XR CHEST 1V History: Reason: CHEST PAIN / Spl. Instructions: / History: Comparison: January 29, 2021 Findings: Low lung volumes. No consolidation or pleural effusion. Normal heart size. No pneumothorax. Impression: 1. No acute cardiopulmonary process. Electronically signed by: Saman Morris DO (01/30/2021 2:53 PM) [id number]
[2021-01-30 15:07] LABS: BASO # 0.1 x10^3/uL (0.0-0.2); BASO % 1 % (0-3); EOS # 0.3 x10^3/uL (0.0-0.7); EOS % 3 % (0-3); HEMATOCRIT 39.6 % (36.0-47.0); HEMOGLOBIN 13.2 g/dL (12.0-15.5); LYMPH # 2.8 x10^3/uL (1.0-4.8); LYMPH % 26 % (24-48); MEAN CORPUSCULAR HEMOGLOBIN 32 pg (25-35); MEAN CORPUSCULAR HGB CONC 33 g/dL (31-37); MEAN CORPUSCULAR VOLUME 97 fL (79-100); MONO # 0.9 x10^3/uL (0.0-1.1); MONO % 9 % (0-9); NEUT # 6.6 x10^3uL (1.8-7.7); NEUT % 62 % (31-73); PLATELET COUNT 316 x10^3/uL (140-400); RED CELL DISTRIBUTION WIDTH 13.8 % (11.5-14.5); WHITE BLOOD COUNT 10.8 x10^3/uL (4.0-11.0)
[2021-01-30 15:09] LABS: CALCIUM 9.3 mg/dL (8.5-10.1); CREATININE 0.7 mg/dL (0.6-1.0); GFR 96.4; POTASSIUM 3.9 mmol/L (3.5-5.1)
[2021-01-30 15:16] LABS: ALBUMIN 3.9 g/dL (3.4-5.0); ALBUMIN/GLOBULIN RATIO 1.2 (1.0-1.7); TOTAL BILIRUBIN 0.2 mg/dL (0.2-1.0); TOTAL PROTEIN 7.2 g/dL (6.4-8.2)
[2021-01-30 15:57] LABS: BACTERIA,URINE FEW /HPF (0-FEW); BILIRUBIN,URINE NEG (NEG); CLARITY,URINE CLEAR; COLOR,URINE YELLOW; GLUCOSE,URINE NEG (NEG); NITRITE,URINE NEG (NEG); RBC,URINE 0 /HPF (0-2); SQUAMOUS EPITHELIAL CELL,UR FEW /LPF; UROBILINOGEN,URINE 0.2 mg/dL (0.2 mg/dL); WBC,URINE 0 /HPF (0-4)
--- NOTE | 2021-01-30 17:10 | RAD ---
EXAM: Head CT without contrast. HISTORY: Dizziness. TECHNIQUE: Computed tomographic images of the head were obtained without contrast. *One or more of the following individualized dose reduction techniques were utilized for this examina tion: 1. Automated exposure control. 2. Adjustment of the mA and/or kV according to patient size. 3. Use of iterative reconstruction technique. COMPARISON: None. FINDINGS: There is no acute or subacute extra-axial or intraparenchymal hemorrhage. There is no mass effect or midline shift. There is no hydrocephalus. The ferreira-white matter differentiation pattern is intact. There is a small lucent lesion within the right calvarium at the vertex, the appearance of which favo rs a benign hemangioma. The orbits and visualized paranasal sinuses mastoid air cells are unremarkabl e. IMPRESSION: No acute intracranial findings. Electronically signed by: Vale Sorto MD (01/30/2021 5:08 PM) [id number]
[2021-01-30 17:46] VITALS: BP 111/48
== END 2021-01-30 17:46 | disposition home or self-care (01) ==
LOC: ER 14:18
DX: R07.89 Other chest pain (principal)
CPT/HCPCS: 36415; 70450; 71045; 80053; 81001; 81025; 83880; 84484; 85025; 85379; 93005; 99285-25